=== PATIENT | female | born 1970 | race Caucasian/White ===

== ENCOUNTER → 2017-07-06 | Outpatient (CLI) | payer BC ==
[~2017-07-06] VITALS: Ht 160 cm; Wt 141.4 kg
[~2017-07-06] MED LIST: Aspirin E.C. PO; BENADRYL25 MG PO; COLACE100 MG PO; Colace PO; ERGOCALCIF50000 UNIT PO; FLEXERIL10 MG PO; MELATONIN3 M4 PO; Milk Of Magnesia,MOM PO; Motrin PO; NEURONTIN100 MG PO; OMEPRAZOLE40 M1 PO; PROAIR RESPICL90 MCG IH; Percocet 5/325,Endoc PO; SAVELLA25 MG PO; SINGULAIR10 MG PO; TYLENOL EXTRA500 MG PO; Vitamin D, Drisdol PO; ZANTAC150 MG PO
== END | disposition home or self-care (01) ==
LOC: AMB 07-03 12:30
PROC: 0DJ08ZZ Inspection of Upper Intestinal Tract, Via Natural or Artificial Opening Endoscopic (ICD-10-PCS; principal; 2017-07-06)
DX: K21.9 Gastro-esophageal reflux disease without esophagitis (principal); K29.70 Gastritis, unspecified, without bleeding; K31.7 Polyp of stomach and duodenum; E66.01 Morbid (severe) obesity due to excess calories; Z68.43 Body mass index [BMI] 50.0-59.9, adult; F32.9 Major depressive disorder, single episode, unspecified; F41.9 Anxiety disorder, unspecified; M19.90 Unspecified osteoarthritis, unspecified site
CPT/HCPCS: J2250

== ENCOUNTER 2017-07-23 22:08 | Inpatient (IN) | payer BC ==
[~2017-07-23] VITALS: Ht 160 cm; Wt 141.5 kg
[~2017-07-23 22:08] MED LIST changes: +BENADRYL ALLERG25 MG PO; +CALCIUM + D3 E1 EACH PO; +CYMBALTA20 MG PO; +XYZAL5 MG PO
[2017-07-24 14:33] VITALS: BP 150/70
[2017-07-24 15:51] LABS: POINT-OF-CARE METER ID UU13113694
[2017-07-24 20:20] LABS: POINT-OF-CARE METER ID UU14208750
[2017-07-24 20:28] VITALS: BP 129/75
[2017-07-24 23:03] VITALS: BP 135/91
[2017-07-25 03:37] VITALS: BP 134/75
[2017-07-25 05:55] LABS: POINT-OF-CARE METER ID UU14208750
[2017-07-25 07:15] LABS: HEMATOCRIT 39.4 % (36.0-46.0); MCH 24.4 PG (29.0-34.0); MCHC 30.7 G/DL (30.0-36.0); MCV 79.6 FL (83-99); MEAN PLAT.VOLUME 11.9 uM^3 (9.5-12.4); PLATELET COUNT 234 K/uL (156-360); RBC DIS.WIDTH-CV 16.1 % (11.8-14.6); RBC DIS.WIDTH-SD 45.7 % (39-53); RED BLOOD COUNT 4.95 M/uL (3.80-5.20); WHITE BLOOD COUNT 12.3 K/uL (4.1-10.2)
[2017-07-25 07:42] VITALS: BP 133/67
[2017-07-25 07:50] LABS: ANION GAP 11 MEQ/L (2-14); CHLORIDE 106 MEQ/L (99-109); GFR ESTIMATE (CALCULATED) > 59 mL/min/; GLUCOSE 106 mg/dL (70-99); MAGNESIUM 1.8 mg/dl (1.3-2.7); POTASSIUM 4.5 MEQ/L (3.7-5.4); SAMPLE HEMOLYSIS CHECK 0; SAMPLE ICTERIC CHECK 0; SAMPLE LIPEMIA CHECK 0; SODIUM 140 MEQ/L (136-147); UREA NITROGEN (BUN) 6 mg/dL (9-23)
[2017-07-25 11:29] VITALS: BP 139/65
[2017-07-25 11:51] LABS: POINT-OF-CARE METER ID UU14162508
[2017-07-25 15:52] VITALS: BP 143/74
[2017-07-25 17:18] LABS: POINT-OF-CARE METER ID UU14208750
[2017-07-25 18:48] VITALS: BP 145/67
[2017-07-25 23:20] VITALS: BP 130/75
[2017-07-25 23:46] LABS: POINT-OF-CARE METER ID UU14208750
[2017-07-26 05:19] LABS: HEMATOCRIT 37.8 % (36.0-46.0); MCHC 32.3 G/DL (30.0-36.0); MCV 80.4 FL (83-99); MEAN PLAT.VOLUME 12.1 uM^3 (9.5-12.4); PLATELET COUNT 208 K/uL (156-360); RBC DIS.WIDTH-CV 16.2 % (11.8-14.6); RBC DIS.WIDTH-SD 46.8 % (39-53); WHITE BLOOD COUNT 12.9 K/uL (4.1-10.2)
[2017-07-26 05:47] LABS: ANION GAP 10 MEQ/L (2-14); CHLORIDE 107 MEQ/L (99-109); GFR ESTIMATE (CALCULATED) > 59 mL/min/; GLUCOSE 130 mg/dL (70-99); MAGNESIUM 1.9 mg/dl (1.3-2.7); POTASSIUM 4.8 MEQ/L (3.7-5.4); SAMPLE HEMOLYSIS CHECK 0; SAMPLE ICTERIC CHECK 0; SAMPLE LIPEMIA CHECK 0; SODIUM 139 MEQ/L (136-147); UREA NITROGEN (BUN) 4 mg/dL (9-23)
[2017-07-26 07:37] VITALS: BP 182/85
[2017-07-26 09:50] VITALS: BP 173/79
[2017-07-26 10:21] VITALS: BP 155/74
== END 2017-07-26 11:00 | disposition home or self-care (01) | DRG 621 ==
LOC: ENRESERV 22:08 → 2SOUTH 07-24 08:29 → ENRESERV 07-24 17:53 → 2EAST 07-24 19:59
PROVIDERS: Surgery
PROC: 0DB64Z3 Excision of Stomach, Percutaneous Endoscopic Approach, Vertical (ICD-10-PCS; principal; 2017-07-24)
DX: E66.01 Morbid (severe) obesity due to excess calories (principal); Z68.43 Body mass index [BMI] 50.0-59.9, adult; M79.7 Fibromyalgia; F32.9 Major depressive disorder, single episode, unspecified; K21.9 Gastro-esophageal reflux disease without esophagitis; D64.9 Anemia, unspecified; F41.9 Anxiety disorder, unspecified; M19.90 Unspecified osteoarthritis, unspecified site
CPT/HCPCS: 80048; 82948; 83735; 84100; 85027; 94799; C9113; J0330; J0690; J1100; J1170; J1644; J1650; J1815; J1885; J2250; J2270; J2405; J2550; J2765; J3010; J3480; J7120; Q0169; S0020